=== PATIENT | male | born 1990 | race Two or more races ===

== ENCOUNTER 2019-10-03 19:46 | Emergency (ER) | payer MEDICAID, OTHER ==
[~2019-10-03] VITALS: Ht 167.6 cm; Wt 260.0 kg
[2019-10-03 19:54] VITALS: BP 130/67
[2019-10-03] MEDS ORDERED: VENTOLIN HFA18 GM INH (20:26)
--- NOTE | 2019-10-03 20:26 | PHYS DOC ---
Past Medical History Past Medical History: Asthma (CARMELO CROFT APRN) Past Surgical History: No Surgical History (CARMELO CROFT APRN) Smoking Status: Light Tobacco Smoker Alcohol Use: Occasionally Drug Use: Marijuana (CARMELO CROFT APRN) Adult General Chief Complaint Chief Complaint: MEDICATION REFILL HPI HPI Patient is a 29 year old [f__sex] who presents with [] (CARMELO CROFT APRN) Review of Systems Review of Systems Constitutional: Denies fever or chills [] Eyes: Denies change in visual acuity, redness, or eye pain [] HENT: Denies nasal congestion or sore throat [] Respiratory: Denies cough or shortness of breath [] Cardiovascular: No additional information not addressed in HPI [] GI: Denies abdominal pain, nausea, vomiting, bloody stools or diarrhea [] : Denies dysuria or hematuria [] Musculoskeletal: Denies back pain or joint pain [] Integument: Denies rash or skin lesions [] Neurologic: Denies headache, focal weakness or sensory changes [] Endocrine: Denies polyuria or polydipsia [] All other systems were reviewed and found to be within normal limits, except as documented in this note. (CARMELO CROFT APRN) Allergies Allergies Allergies Coded Allergies Type Severity Reaction Last Updated Verified No Known Drug Allergies 10/24/13 No (NICK PEPE MD) Physical Exam Physical Exam Constitutional: Well developed, well nourished, no acute distress, non-toxic appearance. [] HENT: Normocephalic, atraumatic, bilateral external ears normal, nose normal. [] Eyes: PERRLA, EOMI, conjunctiva normal, no discharge. [] Neck: Normal range of motion, no stridor. [] Cardiovascular:Heart rate regular rhythm, no murmur [] Lungs & Thorax: Bilateral breath sounds clear to auscultation, Respirations even and unlabored, no retractions, no respiratory distress [] Skin: Warm, dry, no erythema, no rash. [] Back: No tenderness Extremities: No cyanosis, ROM intact, Neurologic: Alert and oriented X 3, no focal deficits noted. [] Psychologic: Affect normal, judgement normal, mood normal. [] (CARMELO CROFT APRN) Current Patient Data Vital Signs Vital Signs Date Time Temp Pulse Resp B/P (MAP) Pulse Ox O2 Delivery O2 Flow Rate FiO2 10/03/19 19:54 16 130/67 (88) 98 Room Air (NICK PEPE MD) EKG EKG [] (CARMELO CROFT APRN) Radiology/Procedures Radiology/Procedures [] (CARMELO CROFT APRN) Course & Med Decision Making Course & Med Decision Making Pertinent Labs and Imaging studies reviewed. (See chart for details) [] (CARMELO CROFT APRN) Dragon Disclaimer Dragon Disclaimer This electronic medical record was generated, in whole or in part, using a voice recognition dictation system. (CARMELO CRFOT APRN) Attending Signature I have participated in the care of this patient and I have reviewed and agree with all pertinent clinical information above including history, exam, and recommendations. (NICK PEPE MD) Departure Departure Impression: Primary Impression: Encounter for medication refill Disposition: HOME, SELF-CARE Condition: STABLE Referrals: NO PCP (PCP) Patient Instructions: Medication Refill, Emergency Department Additional Instructions: Prescription and use as directed. Follow-up with your primary care doctor this week, return to the ER if symptoms worsen. Scripts Albuterol Sulfate (VENTOLIN HFA INHALER) 18 Gm Hfa.aer.ad 2 PUFF INH Q4HRS PRN for WHEEZING for 30 Days, #1 INHALER 0 Refills Prov: CARMELO CROFT APRN 10/03/19 CARMELO CROFT APRN Oct 03, 2019 20:26 NICK PEPE MD Oct 04, 2019 05:25
== END 2019-10-03 20:36 | disposition home or self-care (01) ==
LOC: ER 19:46
DX: Z76.0 Encounter for issue of repeat prescription (principal); J45.909 Unspecified asthma, uncomplicated; F12.90 Cannabis use, unspecified, uncomplicated; F17.200 Nicotine dependence, unspecified, uncomplicated
CPT/HCPCS: 99283